=== PATIENT | male | born 1960 | race Caucasian/White ===

== ENCOUNTER → 2018-08-24 | Outpatient (REF) ==
--- NOTE | 2018-08-25 03:20 | REP ---
Clinical: Pain and disability. Technique: AP, lateral, coned-down views of the lumbosacral spine. Findings: Alignment and lordosis maintained. Moderate multilevel degenerative disc osteophyte complexes are appreciated. No acute fracture / compression injury or subluxation. Left iliac stent identified. Impression: Moderate multilevel degenerative spondylosis. Electronically Signed by Jeremiah Martinez MD 08/25/2018 03:12 A
== END ==
LOC: M SMT 11:41
PROVIDERS: ATTEND Internal Medicine
DX: Z02.71 Encounter for disability determination (principal)

== ENCOUNTER → 2022-03-11 | Outpatient (CLI) | payer OTHER | LOC: M SOG 14:15 | PROVIDERS: ATTEND Physician Assistant | DX: M67.431 Ganglion, right wrist (principal) ==

== ENCOUNTER → 2022-04-24 | Outpatient (CLI) | payer MEDICARE, MEDICAID | LOC: M RAD 09:36 | PROVIDERS: ATTEND Orthopaedic Surgery Hand Surgery | DX: M67.431 Ganglion, right wrist (principal); G56.01 Carpal tunnel syndrome, right upper limb ==

== ENCOUNTER → 2022-05-21 | Outpatient (CLI) | payer MEDICARE, MEDICAID ==
[~2022-05-21] MED LIST: ASPI81TA26 PO; ATOR40TA75 PO; BISO5TAB14 PO; HYDR-3490 PO; LOSA100T45 PO
== END ==
LOC: M LABSMTC 09:19
PROVIDERS: ATTEND Anesthesiology
DX: Z01.812 Encounter for preprocedural laboratory examination (principal); Z11.52 Encounter for screening for COVID-19

== ENCOUNTER 2022-05-30 07:04 | Day surgery (SDC) | payer MEDICARE, MEDICAID ==
[~2022-05-30] VITALS: Ht 182.9 cm; Wt 87.0 kg
[2022-05-30] MEDS ORDERED: LR 1,000 ML IV SCH ×2 (07:20→09:30)
[2022-05-30] MEDS ORDERED: bisoproloL fumarate 5 MG TAB PO ONE (07:50)
[2022-05-30 07:57] VITALS: BP 147/78
[2022-05-30] MEDS ORDERED: BUPIVACAINE HCL 0.25% 30ML VIAL As Ordered ONE (08:38)
[2022-05-30] MEDS ORDERED: ceFAZolin 2 GM/D5W 50 ML IV BAG As Ordered ONE (08:38)
[2022-05-30] MEDS ORDERED: ONDANSETRON 4MG 2ML VIAL As Ordered ONE (08:44)
[2022-05-30] MEDS ORDERED: fentaNYL 100 MCG/2 ML INJECTION As Ordered ONE ×2 (08:44→09:13)
[2022-05-30] MEDS ORDERED: DESFLURANE 240 ML INHALANT As Ordered ONE (08:44)
[2022-05-30] MEDS ORDERED: KETOROLAC 60MG 2ML VIAL As Ordered ONE (08:44)
[2022-05-30] MEDS ORDERED: METOCLOPRAMIDE INJ 10MG/2ML VIAL As Ordered ONE (08:44)
[2022-05-30] MEDS ORDERED: propofoL 200 MG/20 ML VIAL As Ordered ONE ×2 (08:44→08:55)
[2022-05-30] MEDS ORDERED: MIDAZOLAM INJ 2MG/2ML VIAL (J2250 PER 1MG) As Ordered ONE (08:44)
[2022-05-30] MEDS ORDERED: LIDOCAINE 2% 100MG/5ML SDV (FOR ANES.) As Ordered ONE (08:44)
[2022-05-30] MEDS ORDERED: SEVOFLURANE INHAL SOLN 250 ML BTL As Ordered ONE (08:44)
[2022-05-30] MEDS ORDERED: ACETAMINOPHEN 1000MG 100ML IV BAG As Ordered ONE (08:45)
[2022-05-30] MEDS ORDERED: GLYCOPYRROLATE INJ 0.2 MG/ML 2 ML VIAL As Ordered ONE (09:23)
[2022-05-30] MEDS ORDERED: fentaNYL 100 MCG/2 ML INJECTION IV PRN (09:30)
[2022-05-30] MEDS ORDERED: ONDANSETRON 4MG 2ML VIAL IV PRN (09:30)
[2022-05-30] MEDS ORDERED: oxyCODONE 5MG TAB PO PRN (09:30)
[2022-05-30] MEDS ORDERED: HYDROMORPHONE HCL 0.5 MG/ 0.5 ML SYRINGE (J1170 PER 1) IV PRN (09:30)
[2022-05-30] MEDS ORDERED: PERC5TAB12 PO (09:46)
[2022-05-30 10:30] VITALS: BP 156/74
== END 2022-05-30 10:40 | disposition home or self-care (01) ==
LOC: M SDC 07:04
PROVIDERS: ATTEND Orthopaedic Surgery Hand Surgery
DX: M67.431 Ganglion, right wrist (principal); I10 Essential (primary) hypertension; E78.5 Hyperlipidemia, unspecified; Z87.891 Personal history of nicotine dependence; I25.10 Atherosclerotic heart disease of native coronary artery without angina pectoris; I73.9 Peripheral vascular disease, unspecified; Z98.61 Coronary angioplasty status; Z88.8 Allergy status to other drugs, medicaments and biological substances; Z79.82 Long term (current) use of aspirin; Z79.899 Other long term (current) drug therapy
CPT/HCPCS: 25112; 87635; 88304; J0131; J0690; J1100; J1885; J2250; J2405; J2765; J3010